=== PATIENT | female | born 1955 | race Two or more races ===

== ENCOUNTER 2019-09-16 10:01 | Emergency (ER) | payer OTHER ==
[~2019-09-16] VITALS: Ht 170.2 cm; Wt 86.2 kg
[~2019-09-16 10:01] MED LIST: AMLODIPINE BESY10 MG PO; ATENOLOL50 MG PO; CATAPRES0.1 MG PO; CELEBREX100 MG PO; CHLORDIAZEPOXIDE5 MG PO; FUROSEMIDE40 MG PO; HYZAAR 100-251 UDTAB PO; LASIX20 MG PO; METOPROLOL SUCC25 MG PO; PLAVIX75 MG PO
== END 2019-09-16 21:21 | disposition home or self-care (01) ==
LOC: ER 10:01
DX: I67.89 Other cerebrovascular disease (principal); I10 Essential (primary) hypertension; I69.898 Other sequelae of other cerebrovascular disease; G93.0 Cerebral cysts; R20.0 Anesthesia of skin

== ENCOUNTER 2020-01-02 09:04 | Outpatient (CLI) | payer OTHER | END 2020-01-02 09:22 | disposition home or self-care (01) | LOC: NUCLEAR 09:04 | DX: I48.91 Unspecified atrial fibrillation (principal) ==

== ENCOUNTER 2020-12-07 10:38 | Outpatient (CLI) | payer OTHER | END 2020-12-07 10:44 | disposition home or self-care (01) | LOC: RAD 10:38 | PROVIDERS: ATTEND Ophthalmology | DX: R07.89 Other chest pain (principal); Z98.41 Cataract extraction status, right eye; H25.011 Cortical age-related cataract, right eye ==

== ENCOUNTER 2020-12-29 10:26 | Outpatient (CLI) | payer OTHER | END 2020-12-29 10:47 | disposition home or self-care (01) | LOC: MAMO-SONO 10:26 | PROVIDERS: ATTEND Internal Medicine | DX: Z12.31 Encounter for screening mammogram for malignant neoplasm of breast (principal); Z87.898 Personal history of other specified conditions; N64.89 Other specified disorders of breast; I11.9 Hypertensive heart disease without heart failure; E78.89 Other lipoprotein metabolism disorders; F41.9 Anxiety disorder, unspecified; M54.31 Sciatica, right side; M54.5 Low back pain; E03.8 Other specified hypothyroidism; E66.8 Other obesity; M15.9 Polyosteoarthritis, unspecified; Z12.11 Encounter for screening for malignant neoplasm of colon; E11.51 Type 2 diabetes mellitus with diabetic peripheral angiopathy without gangrene ==

== ENCOUNTER → 2021-02-01 | Outpatient (CLI) | payer OTHER | END | disposition home or self-care (01) | LOC: NUCLEAR 14:30 | PROVIDERS: ATTEND Internal Medicine | DX: M54.31 Sciatica, right side (principal); M54.5 Low back pain; M89.8X8 Other specified disorders of bone, other site; M15.8 Other polyosteoarthritis; I11.9 Hypertensive heart disease without heart failure; M81.0 Age-related osteoporosis without current pathological fracture ==

== ENCOUNTER 2021-04-12 11:08 | Emergency (ER) | payer OTHER ==
[~2021-04-12] VITALS: Ht 170.2 cm; Wt 97.5 kg
[2021-04-12] MEDS ORDERED: KETO10TA2 PO (14:13)
== END 2021-04-12 14:23 | disposition home or self-care (01) ==
LOC: ER 11:08
DX: S92.352A Displaced fracture of fifth metatarsal bone, left foot, initial encounter for closed fracture (principal); X50.0XXA Overexertion from strenuous movement or load, initial encounter; Y93.01 Activity, walking, marching and hiking; Y92.488 Other paved roadways as the place of occurrence of the external cause; Y99.8 Other external cause status

== ENCOUNTER 2021-06-01 12:00 | Outpatient (CLI) | payer OTHER ==
[~2021-06-01 12:00] MED LIST changes: +KETO10TA2 PO
== END 2021-06-01 12:07 | disposition home or self-care (01) ==
LOC: RAD 12:00
PROVIDERS: ATTEND Orthopaedic Surgery
DX: M25.572 Pain in left ankle and joints of left foot (principal)

== ENCOUNTER 2021-10-29 09:32 | Outpatient (CLI) | payer OTHER | END 2021-10-29 09:47 | disposition home or self-care (01) | LOC: TOM 09:32 | PROVIDERS: ATTEND Internal Medicine Gastroenterology | DX: K56.600 Partial intestinal obstruction, unspecified as to cause (principal) ==

== ENCOUNTER 2022-04-13 10:45 | Outpatient (CLI) | payer OTHER | END 2022-04-13 10:54 | disposition home or self-care (01) | LOC: MAMO-SONO 10:45 | PROVIDERS: ATTEND Internal Medicine | DX: Z12.31 Encounter for screening mammogram for malignant neoplasm of breast (principal); N60.11 Diffuse cystic mastopathy of right breast ==

== ENCOUNTER 2023-11-02 10:11 | Outpatient (CLI) | payer OTHER | END 2023-11-02 10:17 | disposition home or self-care (01) | LOC: MAMO-SONO 10:11 | PROVIDERS: ATTEND Internal Medicine | DX: I10 Essential (primary) hypertension (principal); E03.9 Hypothyroidism, unspecified; E78.9 Disorder of lipoprotein metabolism, unspecified; E55.9 Vitamin D deficiency, unspecified; Z12.31 Encounter for screening mammogram for malignant neoplasm of breast; N60.12 Diffuse cystic mastopathy of left breast; N60.11 Diffuse cystic mastopathy of right breast ==

== ENCOUNTER 2024-11-27 12:53 | Outpatient (CLI) | payer OTHER | END 2024-11-27 12:54 | disposition home or self-care (01) | LOC: NUCLEAR 12:53 | PROVIDERS: ATTEND Internal Medicine | DX: Z13.820 Encounter for screening for osteoporosis (principal); M81.0 Age-related osteoporosis without current pathological fracture ==

== ENCOUNTER 2024-12-05 11:18 | Outpatient (CLI) | payer OTHER | END 2024-12-05 11:28 | disposition home or self-care (01) | LOC: MAMO-SONO 11:18 | PROVIDERS: ATTEND Internal Medicine | DX: N60.11 Diffuse cystic mastopathy of right breast (principal); N60.12 Diffuse cystic mastopathy of left breast; E55.9 Vitamin D deficiency, unspecified; I10 Essential (primary) hypertension; E03.9 Hypothyroidism, unspecified; E78.9 Disorder of lipoprotein metabolism, unspecified; E11.69 Type 2 diabetes mellitus with other specified complication; Z12.11 Encounter for screening for malignant neoplasm of colon; Z13.820 Encounter for screening for osteoporosis; Z12.31 Encounter for screening mammogram for malignant neoplasm of breast ==